=== PATIENT | female | born 1970 | race Caucasian/White ===

== ENCOUNTER → 2017-04-08 | Outpatient (CLI) | payer OTHER ==
[~2017-04-08] MED LIST: LEVOTHYROXINE PO; TYLENOL 500MG500 MG PO; VOLTAREN50 MG PO
== END ==
LOC: MC.RAD 10:00
DX: Z12.31 Encounter for screening mammogram for malignant neoplasm of breast (principal)

== ENCOUNTER → 2017-04-12 | Outpatient (CLI) | payer OTHER | LOC: MC.RAD 08:30 | DX: N63 Unspecified lump in breast (principal) ==

== ENCOUNTER → 2017-04-17 | Outpatient (CLI) | payer OTHER | LOC: MC.RAD 13:00 | DX: N63 Unspecified lump in breast (principal) | CPT/HCPCS: 30635 ==

== ENCOUNTER → 2017-10-28 | Outpatient (CLI) | payer OTHER | LOC: MC.RAD 08:04 | DX: N63.12 Unspecified lump in the right breast, upper inner quadrant (principal); Z98.890 Other specified postprocedural states ==

== ENCOUNTER → 2018-04-04 | Outpatient (CLI) | payer OTHER | LOC: MC.RAD 13:39 | DX: Z12.31 Encounter for screening mammogram for malignant neoplasm of breast (principal) ==

== ENCOUNTER → 2018-04-07 | Outpatient (CLI) | payer OTHER | LOC: MC.RAD 14:03 → COL.RAD 14:03 | DX: R92.2 Inconclusive mammogram (principal) ==

== ENCOUNTER → 2018-12-11 | Outpatient (REF) ==
[2018-12-11 16:50] LABS: IRON,SERUM 68 ug/dL (35-150)
[2018-12-11 17:00] LABS: TOTAL IRON BINDING CAPACITY 372 ug/dL (265-497)
== END ==
LOC: ZLAB.WCH 16:20
PROVIDERS: Internal Medicine
DX: Z01.89 Encounter for other specified special examinations (principal)

== ENCOUNTER → 2019-03-23 | Outpatient (CLI) | payer OTHER | LOC: MC.RAD 13:42 | DX: Z12.31 Encounter for screening mammogram for malignant neoplasm of breast (principal); Z98.890 Other specified postprocedural states ==

== ENCOUNTER → 2020-04-27 | Outpatient (CLI) | payer OTHER | LOC: MC.RAD 15:00 | DX: Z12.31 Encounter for screening mammogram for malignant neoplasm of breast (principal) ==

== ENCOUNTER → 2021-05-09 | Outpatient (CLI) | payer OTHER ==
[~2021-05-09] MED LIST changes: +ASPIRIN 81M81 MG/TA2 PO; +B-121000 MCG PO; +CYMBALTA 30MG30 MG PO; +CYTOMEL 2525 MCG/TAB PO; +LAMICTAL 100MG100 MG PO; -LEVOTHYROXINE PO; +LIPITOR 80MG80 MG PO; +NITROSTAT0.4 MG/TAB SL; +PLAVIX 75MG TAB75 MG PO; +SYNTHROID0.1 MG/TAB PO; +TOPROL XL 25MG25 MG PO
== END ==
LOC: MC.RAD 09:00
DX: Z12.31 Encounter for screening mammogram for malignant neoplasm of breast (principal)

== ENCOUNTER 2021-08-18 06:52 | Day surgery (SDC) | payer OTHER ==
[2021-08-18] VITALS (11 sets, daily range): BP systolic 95–115; BP diastolic 58–78; PULSE 68–79; TEMP 98.2
[~2021-08-18] VITALS: Ht 172.8 cm; Wt 109.5 kg
[~2021-08-18 06:52] MED LIST changes: -ASPIRIN 81M81 MG/TA2 PO; -B-121000 MCG PO; -CYMBALTA 30MG30 MG PO; -CYTOMEL 2525 MCG/TAB PO; -LAMICTAL 100MG100 MG PO; -LIPITOR 80MG80 MG PO; -NITROSTAT0.4 MG/TAB SL; -PLAVIX 75MG TAB75 MG PO; -TOPROL XL 25MG25 MG PO
[2021-08-18 07:44] LABS: HEMATOCRIT 43.2 % (37.0-47.0); HEMOGLOBIN 14.2 g/dl (12.5-16.0); MEAN CELL VOLUME 92 fl (80.0-100.0); MEAN CORPUSCULAR HEMOGLOBIN 30 pg (27.0-31.0); MEAN CORPUSCULAR HGB CONC 33 g/dl (33.0-37.0); MEAN PLATELET VOLUME 9.1 fl (7.4-10.4); PLATELET COUNT 328 K/mm3 (130-400); RED BLOOD COUNT 4.68 M/mm3 (4.10-5.30); REDCELL DISTRIBUTION WIDTH-CV 12.6 % (11.5-14.5)
[2021-08-18 07:47] LABS: INR 1.1 (0.8-3.0); PROTHROMBIN TIME 12.3 SECONDS (9.7-12.8)
[2021-08-18 07:49] LABS: PARTIAL THROMBOPLASTIN TIME 34.4 SECONDS (26.0-37.0)
[2021-08-18 07:57] LABS: CALCIUM 9.9 mg/dL (8.4-10.2); CREATININE, serum 0.9 mg/dL (0.57-1.11); POTASSIUM 4.2 mmol/L (3.5-4.5)
[2021-08-18] MEDS ORDERED: CYMBALTA 30MG30 MG PO (08:10)
[2021-08-18] MEDS ORDERED: LAMICTAL 100MG100 MG PO (08:10)
[2021-08-18] MEDS ORDERED: CYTOMEL 2525 MCG/TAB PO (08:14)
[2021-08-18] MEDS ORDERED: B-121000 MCG PO (08:14)
[2021-08-18] MEDS ORDERED: PLAVIX 75MG TAB75 MG PO (08:15)
[2021-08-18] MEDS ORDERED: ASPIRIN 81M81 MG/TA2 PO (08:16)
[2021-08-18] MEDS ORDERED: TOPROL XL 25MG25 MG PO (08:16)
[2021-08-18] MEDS ORDERED: LIPITOR 80MG80 MG PO (08:16)
[2021-08-18] MEDS ORDERED: NITROSTAT0.4 MG/TAB SL (08:17)
--- NOTE | 2021-08-18 08:30 | NUR ---
PT TO PROCEDURE
--- NOTE | 2021-08-18 09:09 | NUR ---
SEE MERGE FOR ALL MEDICATION ADMINISTRATION TIMES, INTRA AND POST SEDATION ASSESSMENTS
--- NOTE | 2021-08-18 11:08 | NUR ---
Report to [facility].
--- NOTE | 2021-08-18 12:20 | NUR ---
Air was removed from TR band in 2 ml increments with no bleeding or complication. Rt radial puncture site dressed with folded 2x2 and bandaid. Pt is steady on feet around room. INT DC'd wtih catheter intact. She and both express understanding of DC instructions. She is assisted out by wheelchair to 's car with belongings.
== END 2021-08-18 12:20 | disposition home or self-care (01) ==
LOC: COL.CAR 06:52
PROVIDERS: Internal Medicine Interventional Cardiology
DX: R07.89 Other chest pain (principal); R94.39 Abnormal result of other cardiovascular function study; E78.5 Hyperlipidemia, unspecified; R00.2 Palpitations; Z79.890 Hormone replacement therapy; Z79.899 Other long term (current) drug therapy
CPT/HCPCS: C1769; J1644; J2250; J3010; Q9967

== ENCOUNTER → 2022-05-28 | Outpatient (CLI) | payer OTHER ==
[~2022-05-28] MED LIST changes: +ASPIRIN 81M81 MG/TA2 PO; +B-121000 MCG PO; +CYMBALTA 30MG30 MG PO; +CYTOMEL 2525 MCG/TAB PO; +LAMICTAL 100MG100 MG PO; +LIPITOR 80MG80 MG PO; +NITROSTAT0.4 MG/TAB SL; +PLAVIX 75MG TAB75 MG PO; +TOPROL XL 25MG25 MG PO
== END ==
LOC: MC.RAD 14:24
DX: Z12.31 Encounter for screening mammogram for malignant neoplasm of breast (principal)

== ENCOUNTER → 2024-07-14 | Outpatient (CLI) | payer BC | LOC: MC.RAD 10:15 | DX: Z12.31 Encounter for screening mammogram for malignant neoplasm of breast (principal) ==